=== PATIENT | male | born 1960 | race Caucasian/White ===

== ENCOUNTER 2025-04-05 08:08 | Day surgery (SDC) | payer OTHER ==
[2025-03-30 17:30] VITALS: BMI 26.3
[2025-04-05] MEDS ORDERED: LIDOCAINE 1%/EPI 1:100000 (20 ML MULTI DOSE VIAL) ONE (08:46)
[2025-04-05] MEDS ORDERED: TETRACAINE 0.5% OPHTH SOLN 2 ML BOTTLE ONE (08:46)
[2025-04-05] MEDS ORDERED: ERYTHROMYCIN 0.5% OPHTHALMIC OINTMENT 3.5 GM TUBE ONE (08:46)
[2025-04-05] MEDS ORDERED: MIDAZOLAM HCL 2 MG/2 ML SINGLE DOSE VIAL ONE ×2 (09:04→09:59)
[2025-04-05] MEDS ORDERED: PROPOFOL 40 ML ONE (09:04)
[2025-04-05] MEDS ORDERED: POVIDONE-IODINE 5% OPHTHALMIC PREP 30 ML SOLUTION ONE (09:15)
[2025-04-05] MEDS ORDERED: ONDANSETRON 4 MG/2 ML VIAL ONE (09:26)
[2025-04-05] MEDS ORDERED: DEXAMETHASONE SOD PHOSPHATE 4 MG/1 ML VIAL ONE (09:26)
[2025-04-05] MEDS ORDERED: KETAMINE HCL 100 MG/ML - 5ML VIAL ONE (09:51)
[2025-04-05] MEDS ORDERED: PROPOFOL 20 ML ONE ×2 (10:12→10:45)
[2025-04-05] MEDS ORDERED: METOPROLOL TARTRATE 5 MG/5 ML VIAL ONE (11:22)
[2025-04-05] MEDS ORDERED: ONDANSETRON 4 MG/2 ML VIAL IVPUSH PRN (11:43)
[2025-04-05] MEDS ORDERED: LACTATED RINGERS SOLUTION 1,000 ML IV SCH (11:45)
[2025-04-05] MEDS ORDERED: ACETAMINOPHEN INJECTION 100 ML ONE (12:08)
[2025-04-05] MEDS: ACETAMINOPHEN 1000 MG/100 ML BAG IVPB ONE (12:09)
[2025-04-05 12:34] VITALS: RESP 16
[2025-04-05 12:52] VITALS: PULSE 63; TEMP 97.1
[2025-04-05 13:21] VITALS: BP 140/67
== END 2025-04-05 13:21 | disposition home or self-care (01) ==
LOC: FASU 08:08
PROVIDERS: ATTEND Ophthalmology
PROC: 0W020ZZ Alteration of Face, Open Approach (ICD-10-PCS; principal; 2025-04-05 09:43)
DX: H02.422 Myogenic ptosis of left eyelid (principal)
CPT/HCPCS: 94760